=== PATIENT | female | born 1950 | race Caucasian/White ===

== ENCOUNTER 2022-10-30 12:55 | Outpatient (CLI) | payer OTHER, MEDICARE ==
--- NOTE | 2022-10-31 12:03 | Mammography Report ---
BILATERAL DIGITAL SCREENING MAMMOGRAM 3D/2D: 10/30/2022 CLINICAL: Routine screening. Comparison is made to exams dated: 04/26/2014 mammogram, 05/05/2013 mammogram, and 10/14/2011 mammogram - [facility]. Both breasts are heterogeneously dense, which may obscure small masses (category c / 51-75% glandular tissue). There is a possible new oval equal density focal asymmetry in the left breast at 1 o'clock posterior depth. There is possible subtle architectural distortion associated with the focal asymmetry. No other significant masses, calcifications, or other findings are seen in either breast. IMPRESSION: INCOMPLETE: NEEDS ADDITIONAL IMAGING EVALUATION The possible new oval equal density focal asymmetry in the left breast is indeterminate. Additional views with possible ultrasound are recommended. Based on the Tyrer Cuzick model (a risk assessment model) the patients lifetime risk is 6.5% and her 10 year risk is 4.1%. According to the ACR, ACS, and NCCN guidelines, an annual breast MRI exam tarun g with mammogram is recommended if the patients lifetime risk is 20% or greater. This exam was interpreted at Station ID: [id number]. NOTE: For mammograms, a report in lay terms will be sent to the patient. Approximately 15% of breast malignancies will not be visualized mammographically. In the management of a palpable breast mass, a negative mammogram must not discourage biopsy of a clinically suspicious lesion. Electronically Signed By: Ollie Adams M.D. aty/:10/30/2022 17:25:58 ACR BI-RADS Category 0: Incomplete 3340F PARENCHYMAL PATTERN: (D) - The breast(s) demonstrate(s) heterogeneously dense fibroglandular parsoniy ma. BI-RADS CATEGORY: (0) - 0 Mammo and [place] [id number] Immediate follow-up LATERALITY: (L)
== END 2022-10-30 12:56 | disposition home or self-care (01) ==
LOC: DI 12:55
PROVIDERS: ATTEND Student in an Organized Health Care Education/Training Program
DX: Z12.31 Encounter for screening mammogram for malignant neoplasm of breast (principal)

== ENCOUNTER 2022-10-30 13:06 | Outpatient (CLI) | payer OTHER, MEDICARE ==
--- NOTE | 2022-10-30 16:07 | CT Report ---
PROCEDURE: Low Dose Lung Cancer Screen INDICATIONS: SMOKER TECHNIQUE: Noncontrast low-dose axial images were acquired from the pulmonary apices to the posterior costophren ic angles. Multiplanar MIP reformats were then reconstructed. For radiation dose reduction, the follo wing was used: automated exposure control, adjustment of mA and/or kV according to patient size. COMPARISON: None. FINDINGS: Image quality: Excellent. Lungs and pleura: Centrilobular emphysema. 4.5 cm nodule, left upper lobe (5/82); alternatively this could represent a small focus of scar. Mediastinum: Heart size is normal. No pericardial effusion. No mediastinal adenopathy by size crit eria. Thoracic aorta and central pulmonary arteries are normal in size. Esophagus is normal in deisy sally. No hiatal hernia. Moderate coronary calcifications. Bones and chest wall: No suspicious bony lesions. No vertebral body compression fractures. No axil tali or supraclavicular adenopathy by size criteria. Coarse calcifications along the anterior thyroi d, nonspecific. Abdomen: Fluid attenuating liver cysts. IMPRESSION: Lung RADS 2; continued annual screening if applicable. Reviewed by: Colt Norton on 10/30/2022 4:06 PM PST Approved by: Colt Norton on 10/30/2022 4:06 PM PST Station ID: [id number]
== END 2022-10-30 13:07 | disposition home or self-care (01) ==
LOC: DI 13:06
PROVIDERS: ATTEND Student in an Organized Health Care Education/Training Program
DX: Z12.2 Encounter for screening for malignant neoplasm of respiratory organs (principal); F17.210 Nicotine dependence, cigarettes, uncomplicated

== ENCOUNTER 2022-11-20 12:30 | Outpatient (CLI) | payer OTHER, MEDICARE ==
--- NOTE | 2022-11-21 09:38 | Mammography Report ---
UNILATERAL LEFT DIGITAL DIAGNOSTIC MAMMOGRAM 3D/2D: 11/20/2022 CLINICAL: Patient returns today to evaluate a focal asymmetry in the left breast. Comparison is made to exams dated: 10/30/2022 mammogram, 04/26/2014 mammogram, and 05/05/2013 mammogram - [facility]. The left breast is heterogeneously dense, which may obscure small masses (category c / 51-75% glandul ar tissue). There is a 9 mm irregular equal density asymmetry with an obscured and spiculated margin in the left breast at 2 o'clock posterior depth. This is seen in additional views. There is possible architectu ral distortion associated with the asymmetry. No other significant masses or calcifications are seen in the breast. IMPRESSION: INCOMPLETE: NEEDS ADDITIONAL IMAGING EVALUATION The asymmetry in the left breast remains indeterminate. An ultrasound is recommended. This was perf ormed immediately following this exam. Based on the Tyrer Cuzick model (a risk assessment model) the patients lifetime risk is 6.5% and her 10 year risk is 4.1%. According to the ACR, ACS, and NCCN guidelines, an annual breast MRI exam tarun g with mammogram is recommended if the patients lifetime risk is 20% or greater. This exam was interpreted at Station ID: [id number]. NOTE: For mammograms, a report in lay terms will be sent to the patient. Approximately 15% of breast malignancies will not be visualized mammographically. In the management of a palpable breast mass, a negative mammogram must not discourage biopsy of a clinically suspicious lesion. Electronically Signed By: Linnea garcia/:11/20/2022 13:02:39 ACR BI-RADS Category 0: Incomplete 3340F PARENCHYMAL PATTERN: (D) - The breast(s) demonstrate(s) heterogeneously dense fibroglandular parenchy ma. BI-RADS CATEGORY: (0) - 0 Ultrasound [id number] Immediate follow-up LATERALITY: (B)
--- NOTE | 2022-11-21 09:38 | Ultrasound Report ---
LIMITED ULTRASOUND OF LEFT BREAST: 11/20/2022 CLINICAL: Patient returns today to evaluate a focal asymmetry in the left breast. Comparison is made to exams dated: 11/20/2022 mammogram, 10/30/2022 mammogram, 04/26/2014 mammogram, 05/05 mammogram, 10/14/2011 mammogram, and 10/17/2010 mammogram - [facility]. Ultrasound of the left breast 1-3 o'clock region was performed. Biswas scale images of the real-time examination were reviewed. No significant abnormalities were seen sonographically in the left breast. Specifically, no finding to correspond to the patient's screening mammographic abnormality. IMPRESSION: PROBABLY BENIGN There is no sonographic correlate to the patient's left breast mammographic abnormality. A follow-up left mammogram and an ultrasound in 6 months is recommended to demonstrate stability. Findings and recommendations were conveyed to the patient at time of exam. This exam was interpreted at Station ID: [id number]. Electronically Signed By: Linnea garcia/:11/20/2022 13:28:09 Ultrasound BI-RADS: 3 Probably benign BI-RADS CATEGORY: (3) - 3 Mammo and US [id number] 6 month follow-up LATERALITY: (L)
== END 2022-11-20 12:31 | disposition home or self-care (01) ==
LOC: DI 12:30
PROVIDERS: ATTEND Student in an Organized Health Care Education/Training Program
DX: R92.8 Other abnormal and inconclusive findings on diagnostic imaging of breast (principal)

== ENCOUNTER 2023-06-24 07:59 | Outpatient (CLI) | payer OTHER, MEDICARE ==
--- NOTE | 2023-06-24 11:05 | Mammography Report ---
UNILATERAL LEFT DIGITAL DIAGNOSTIC MAMMOGRAM 3D/2D WITH EXAGGERATED CC: 06/24/2023 CLINICAL: Patient returns for a 6 month follow up of the left breast. Comparison is made to exams dated: 11/20/2022 mammogram, 10/30/2022 mammogram, and 04/26/2014 mammogram - [facility]. The left breast is heterogeneously dense, which may obscure small masses (category c / 51-75% glandul ar tissue). Prior asymmetry is no longer distinctly seen in the left breast in the posterior depth in the upper o uter quadrant. No significant masses, calcifications, or other findings are seen in the breast. IMPRESSION: INCOMPLETE: NEEDS ADDITIONAL IMAGING EVALUATION No mammographic abnormality in the left upper outer quadrant on the current exam. Due to increased ti ssue density in the quadrant, ultrasound is recommended to ensure no developing underlying mass. This was performed immediately following this exam. Based on the Tyrer Cuzick model (a risk assessment model) the patients lifetime risk is 12.0% and he r 10 year risk is 8.3%. According to the ACR, ACS, and NCCN guidelines, an annual breast MRI exam julianne ng with mammogram is recommended if the patients lifetime risk is 20% or greater. This exam was interpreted at Station ID: [id number]. NOTE: For mammograms, a report in lay terms will be sent to the patient. Approximately 15% of breast malignancies will not be visualized mammographically. In the management of a palpable breast mass, a negative mammogram must not discourage biopsy of a clinically suspicious lesion. Electronically Signed By: Linnea garcia/:06/24/2023 08:47:31 ACR BI-RADS Category 0: Incomplete 3340F PARENCHYMAL PATTERN: (D) - The breast(s) demonstrate(s) heterogeneously dense fibroglandular parenchy ma. BI-RADS CATEGORY: (0) - 0 Ultrasound [id number] Immediate follow-up LATERALITY: (B)
--- NOTE | 2023-06-24 11:05 | Ultrasound Report ---
LIMITED ULTRASOUND OF LEFT BREAST: 06/24/2023 CLINICAL: Patient returns today to evaluate a focal asymmetry in the left breast. Comparison is made to exams dated: 11/20/2022 ultrasound, 11/20/2022 mammogram, and 10/30/2022 mammogram - [facility]. Color flow ultrasound of the left breast 1-3 o'clock region was performed. Biswas scale images of the real-time examination were reviewed. No significant abnormalities were seen sonographically in the left breast. Specifically, no finding to correspond to the patient's resolved screening mammographic abnormality. IMPRESSION: PROBABLY BENIGN No sonographic abnormalities in the left upper outer quadrant area of dense tissue and [id number] mammographic asymmetry. A follow-up left mammogram in 6 months is recommended to demonstrate stabili ty. The patient will be due for bilateral mammograms at that same visit. Findings and recommendatio ns were conveyed to the patient at time of exam. This exam was interpreted at Station ID: [id number]. Electronically Signed By: Linnea garcia/:06/24/2023 08:55:04 Ultrasound BI-RADS: 3 Probably benign BI-RADS CATEGORY: (3) - 3 Mammogram [id number] 6 month follow-up LATERALITY: (L)
== END 2023-06-24 08:00 | disposition home or self-care (01) ==
LOC: DI 07:59
PROVIDERS: ATTEND Internal Medicine
DX: R92.8 Other abnormal and inconclusive findings on diagnostic imaging of breast (principal); R92.332 Mammographic heterogeneous density, left breast

== ENCOUNTER 2023-12-28 08:00 | Outpatient (CLI) | payer MEDICARE | END 2023-12-28 08:01 | disposition home or self-care (01) | LOC: LAB.N 08:00 | PROVIDERS: ATTEND Physician Assistant Medical | DX: R05.9 Cough, unspecified (principal); R06.02 Shortness of breath ==

== ENCOUNTER 2024-02-02 13:15 | Outpatient (CLI) | payer MEDICARE ==
--- NOTE | 2024-02-03 09:24 | Ultrasound Report ---
LIMITED ULTRASOUND OF LEFT BREAST: 02/02/2024 CLINICAL: Patient returns for a 6 month follow up of the left breast, due for bilateral exam. Comparison is made to exams dated: 02/02/2024 mammogram, 06/24/2023 ultrasound, 06/24/2023 mammogram, ultrasound, 11/20/2022 mammogram, and 10/30/2022 mammogram - [facility]. Real-time ultrasound of the left breast 1-3 o'clock region was performed. Biswas scale images of the real-time examination were reviewed. No significant abnormalities were seen sonographically in the left breast. IMPRESSION: PROBABLY BENIGN There is no abnormality seen in the left breast to correspond with the no longer seen mammography fin ding in the left lateral breast posterior depth which likely represents normal fibroglandular tissue. A follow-up bilateral mammogram with possible left ultrasound in 12 months is recommended to document senior care stability. Findings and recommendations were conveyed to the patient during today's evaluation. This exam was interpreted at Station ID: [id number]. Electronically Signed By: Ollie Adams M.D. aty/:02/02/2024 17:25:19 Ultrasound BI-RADS: 3 Probably benign BI-RADS CATEGORY: (3) - 3 Mammo and US [id number] 12 month follow-up LATERALITY: (B)
--- NOTE | 2024-02-03 09:24 | Mammography Report ---
BILATERAL DIGITAL DIAGNOSTIC MAMMOGRAM 3D/2D WITH EXAGGERATED CC: 02/02/2024 CLINICAL: Patient returns for a 6 month follow up of the left breast, due for bilateral exam. Comparison is made to exams dated: 06/24/2023 mammogram, 11/20/2022 mammogram, 10/30/2022 mammogram, and 04/26/2014 mammogram - [facility]. Both breasts are heterogeneously dense, which may obscure small masses (category c / 51-75% glandular tissue). Prior asymmetry remains no longer seen in the left breast in the posterior depth in the upper outer q uadrant. No significant masses, calcifications, or other findings are seen in either breast. IMPRESSION: INCOMPLETE: NEEDS ADDITIONAL IMAGING EVALUATION Left breast ultrasound is recommended to confirm no focal abnormalities in the posterior aspect of th e lateral left breast. This will immediately follow this exam. Based on the Tyrer Cuzick model (a risk assessment model) the patient's lifetime risk is 11.3% and he r 10 year risk is 8.5%. According to the ACR, ACS, and NCCN guidelines, an annual breast MRI exam julianne ng with mammogram is recommended if the patient's lifetime risk is 20% or greater. This exam was interpreted at Station ID: [id number]. NOTE: For mammograms, a report in lay terms will be sent to the patient. Approximately 15% of breast malignancies will not be visualized mammographically. In the management of a palpable breast mass, a negative mammogram must not discourage biopsy of a clinically suspicious lesion. Electronically Signed By: Ollie Adams M.D. aty/:02/02/2024 17:22:55 ACR BI-RADS Category 0: Incomplete 3340F PARENCHYMAL PATTERN: (D) - The breast(s) demonstrate(s) heterogeneously dense fibroglandular parenchy ma. BI-RADS CATEGORY: (0) - 0 Ultrasound [id number] Immediate follow-up LATERALITY: (L)
== END 2024-02-02 13:16 | disposition home or self-care (01) ==
LOC: DI 13:15
PROVIDERS: ATTEND Internal Medicine
DX: R92.8 Other abnormal and inconclusive findings on diagnostic imaging of breast (principal); R92.333 Mammographic heterogeneous density, bilateral breasts